=== PATIENT | male | born 1975 | race Two or more races ===

== ENCOUNTER 2021-01-21 11:49 | Emergency (ER) | payer MEDICAID ==
[~2021-01-21] VITALS: Ht 180.3 cm; Wt 118.0 kg
[2021-01-21] MEDS ORDERED: IBUPROFEN 600MG TABLET PO STA (12:52)
[2021-01-21] MEDS ORDERED: NAPR-673 PO (13:15)
[2021-01-21] MEDS ORDERED: TRAM50TA3 MT (13:15)
[2021-01-21 13:54] VITALS: BP 150/78
== END 2021-01-21 13:54 | disposition home or self-care (01) ==
LOC: ER 11:49
DX: S90.111A Contusion of right great toe without damage to nail, initial encounter (principal); I10 Essential (primary) hypertension; W22.8XXA Striking against or struck by other objects, initial encounter; Y93.89 Activity, other specified; Y92.018 Other place in single-family (private) house as the place of occurrence of the external cause
CPT/HCPCS: 73630; 99283

== ENCOUNTER 2021-01-28 15:16 | Emergency (ER) | payer MEDICAID ==
[~2021-01-28] VITALS: Ht 180.3 cm; Wt 120.0 kg
[~2021-01-28 15:16] MED LIST: NAPR-673 PO; TRAM50TA3 MT
[2021-01-28] MEDS ORDERED: IBUPROFEN 400MG TABLET PO ONE (16:00)
[2021-01-28] MEDS ORDERED: ACETAMINOPHEN 325MG TABLET PO ONE (16:00)
[2021-01-28] MEDS ORDERED: IBUP-2029 MT (17:26)
[2021-01-28 17:40] VITALS: BP 160/100
== END 2021-01-28 17:41 | disposition home or self-care (01) ==
LOC: ER 15:16
DX: S99.821A Other specified injuries of right foot, initial encounter (principal); I10 Essential (primary) hypertension; W22.8XXA Striking against or struck by other objects, initial encounter; Y93.89 Activity, other specified; Y92.018 Other place in single-family (private) house as the place of occurrence of the external cause
CPT/HCPCS: 73630; 99283

== ENCOUNTER 2021-02-08 12:48 | Emergency (ER) | payer MEDICAID ==
[~2021-02-08] VITALS: Ht 180.3 cm; Wt 122.0 kg
[~2021-02-08 12:48] MED LIST changes: +IBUP-2029 MT
[2021-02-08 12:51] VITALS: BP 158/93
[2021-02-08] MEDS ORDERED: ACETAMINOPHEN 500MG TABLET PO ONE (15:30)
[2021-02-08] MEDS ORDERED: ACET-2708 MT (17:00)
== END 2021-02-08 17:20 | disposition home or self-care (01) ==
LOC: ER 12:48
DX: M79.674 Pain in right toe(s) (principal); I10 Essential (primary) hypertension; Z87.828 Personal history of other (healed) physical injury and trauma
CPT/HCPCS: 73660; 99283